=== PATIENT | male | born 1950 | race Caucasian/White ===

== ENCOUNTER 2022-05-10 11:04 | Day surgery (SDC) | payer OTHER, SELFPAY ==
--- NOTE | 2022-05-10 06:47 | ANES.PREOP_ITS ---
General Info Date of Service Date Performed: 05/10/22 Height: 5 ft 8 in Weight: 74.843 kg Body Mass Index (BMI): 25.0 Surgical Procedure: Operation Date: 05/10/22 14:40 Proposed Procedure Side Surgeon p Cataract Extraction with IOL Implant Right Gerard Martino MD Meds Allergies and Home Medications Allergies Allergy/AdvReac Type Severity Reaction Status Date / Time No Known Allergies Allergy Unverified 05/10/22 11:34 Home Medication Medication Instructions Recorded adalimumab 40 mg/0.8 mL 40 mg subcut DIRECTED 05/07/22 subcutaneous syringe kit calcium 100 mg capsule 100 mg PO DAILY 05/07/22 sildenafil 100 mg tablet 100 mg PO DIRECTED 05/07/22 tamsulosin 0.4 mg capsule 0.4 mg PO HS 05/07/22 omega-3 fatty acids 1 cap PO DAILY 05/10/22 Current Visit Medications: Current Medications Generic Name Dose Route Start Last Admin Trade Name Freq PRN Reason Stop Dose Admin Acetaminophen 1,000 mg 05/10/22 06:00 Acetaminophen 500 Mg Tab PO Q4H PRN PRN Miscellaneous Medication 0 ml 05/10/22 06:00 Prednisolone 1%, Moxifloxacin 0.5%, Nepafenac 0.1% 5ml Btl OD DIRECTED [facility] Miscellaneous Medication 0 ml 05/10/22 06:00 Tropicam./Phenyleph. (1/2.5%) 5 Ml Btl OD DIRECTED [facility] Tetracaine HCl 0 ml 05/10/22 06:00 Tetracaine 0.5% 4 Ml Btl OD DIRECTED [facility] Medical History Medical History Compression fracture of thoracic vertebra Erectile dysfunction Inguinal hernia Osteoporosis Pain in right knee Prostate cancer Ulcerative colitis Surgical History Surgical History (Updated 05/10/22 @ 11:34 by Jennifer Alexander RN) H/O inguinal hernia repair Tobacco Smoking/Tobacco Use Status: Former Tobacco Use Alcohol Alcohol Intake: current Alcohol intake frequency: a few times a week Alcohol type: beer Substance Use Substance use: Never Substance use type: does not use Vital Signs and Lab Results Vital Signs Most Recent Vital Signs in EMR: Temp Pulse Resp BP Pulse Ox 36.4 C L 75 16 126/92 H 98 05/10/22 11:26 05/10/22 11:26 05/10/22 11:26 05/10/22 11:26 05/10/22 11:26 Lab Results Blood Type / Crossmatch: No Data to Display Complete Blood Count: No Data to Display Complete Metabolic Panel: No Data to Display Liver Function Panel: No Data to Display Coagulation Panel: No Data to Display Cardiac Panel: No Data to Display Arterial Blood Gas: No Data to Display Venous Blood Gas: No Data to Display Pancreas Panel: No Data to Display Thyroid Panel: No Data to Display Infectious Disease: No Data to Display Blood Cultures: No Data to Display Toxicology Panel: No Data to Display Anesthesia Assessment and Plan Anesthesia History Personal History: No History of Anesthesia Complications Family History: No Family History of Anesthesia Complications Exercise Tolerance Exercise Tolerance: Metabolic Equivalents>4 Cardiac & Pulmonary Exam Cardiac Exam: Normal S1/S2 Heart Sounds Pulmonary Exam: Clear Bilateral Breath Sounds Implantable Cardiac Device Does patient have a Pacemaker or an ICD?: No Airway Exam Known Difficult Airway: No Mallampati Class: 2 Mouth Opening: Normal (> 3cm) Thyromental Distance: Greater than 3 cm Neck Range of Motion: Full ROM Neck Circumference: Normal Teeth Condition: Generalized Poor Dentition Airway Comments: Multiple missing, denies loose. ASA Classification ASA Score: ASA 2 Emergency Case?: No NPO Status NPO Status: NPO Clears >2 hours, Solids >8 hours Anesthesia Plan Resuscitation Status: Full Code Anesthesia Technique: MAC Anesthesia Airway Planned: Natural Airway Monitors Used: Standard Monitors Preoperative Comments:: 71 yo male for cataract removal. Sig PMHx: prostate CA, former smoker, No mko
[2022-05-10 11:26] VITALS: BP 126/92; PULSE 75; RESP 16; TEMP 36.4; O2SAT 98
[2022-05-10] MEDS: Tropicam./Phenyleph. (1/2.5%) 5 ML BTL OD ×3 (11:44→11:55)
[2022-05-10 12:06] VITALS: BMI 25.0
[2022-05-10] MEDS: Tetracaine 0.5% 4 ML BTL OD (13:33)
[2022-05-10] MEDS: Balanced Salt Soln.-PLUS 500 ML BAG (13:36)
[2022-05-10] MEDS: Duovisc Viscoelastic System EACH 1 EACH (13:37)
[2022-05-10] MEDS: Lidocaine 2% Jelly 6 ML SYR (13:39)
[2022-05-10] MEDS: Povidone-Iodine Ophth 30 ML BTL (13:40)
[2022-05-10 13:48] VITALS: BP 133/82; PULSE 69; RESP 16; TEMP 36.7; O2SAT 98
--- NOTE | 2022-05-10 13:49 | ROE_ITS ---
Date of service: 05/10/22 Time of Service: 14:31 Operative Note Operative Note DATE OF PROCEDURE: 05/10/22 PRE-OP DIAGNOSIS: Nuclear cataract, right eye POST-OP DIAGNOSIS: same PROCEDURE: Cataract extraction using phacoemulsification with intraocular lens implant, right eye SURGEON: Gerard Martino ANESTHESIA TYPE: Local By Surgeon and MAC Refer to Anesthesia Record ESTIMATED BLOOD LOSS: 0 PATHOLOGY: none sent COMPLICATIONS: None Patient was transported to: same day Patient's condition: stable Implants: Malcolm [employer] Malcolm/JOHANNA Tecnis [id number] Indications: Progressive visual loss due to cataract, right eye Procedure Description: CATARACT SURGERY OPERATIVE REPORT PREOPERATIVE DIAGNOSIS: 1. Nuclear cataract, right eye POSTOPERATIVE DIAGNOSIS: Same OPERATION: 1. Cataract extraction using phacoemulsification with posterior chamber intraocular lens implant, right eye. IOL: IOL Oil Well Gun Perforator Operator/Model: Malcolm & Malcolm / JOHANNA Tecnis [id number] IOL Power: + 18.5 diopters IOL Serial Number: [id number] Optic Diameter: 6.0mm Haptic/Overall Diameter: 13.0mm PHACO INFO: Victorinothinktank.neturion Vision System with OZil and Active Fluidics Cumulative Dispersed Energy (CDE): 14.75 seconds SURGEON: Gerard Martino MD, RJ ANESTHESIA: Monitored Anesthesia Care (MAC), with local sub-tenon's anesthetic infiltration COMPLICATIONS: None SPECIMENS: None INDICATIONS FOR PROCEDURE: The patient is a 71-year-old gentleman with history of diminished visual acuity in his right eye secondary to the development of significant nuclear cataract. The option of cataract surgery was offered to the patient and he felt he was symptomatic enough that he wished to proceed. PROCEDURE: The correct surgical eye was identified and marked as the right eye and the pupil was dilated in the preoperative area using mydriatics and cycloplegics. The dilated pupil size was 6.0 mm. He elected to proceed without oral sedation.). The patient was brought to the operating room where cardiopulmonary monitoring was instituted and surgical time-out was performed, confirming the correct operative eye and IOL power. Topical anesthesia was administered and ophthalmic povidone-iodine 5% was instilled into the conjunctival fornices. Lidocaine gel was applied to the cornea and the melinda-ocular area was prepped with Betadine 10% solution and draped in the usual sterile fashion for intraocular surgery, including an aperture drape. A Tegaderm transparent film dressing was cut in half and used to cover the lashes and lid margins. Care was taken to sequester the lashes and lid margins under the Tegaderm dressing. A lid speculum was placed between the lids of the operative eye and the Victorino Lux[employer] Revalia operating microscope was maneuvered into position. Marilee scissors were then used to make a conjunctival buttonhole approximately 6mm posterior to the limbus in the inferonasal quadrant. Blunt dissection was carried out to expose bare sclera, and a blunt-tipped sub-tenon?s anesthesia cannula was introduced and passed posteriorly along the globe where non- preserved plain lidocaine was injected into posterior sub-Tenon?s space. A sideport knife was used to make a paracentesis port inferotemporally. Intraocular phenylephrine/lidocaine was injected into the anterior chamber. The anterior chamber was filled with viscoelastic. A 2.4mm keratome knife was used to construct a 2-plane near-clear corneal tunnel extending 2.0mm into clear co rnea superiortemporally. A flap was raised on the anterior capsule and capsulorhexis forceps were used to complete a continuous curvilinear capsulorhexis of 5.0 mm. Balanced salt solution was then used to perform cortical cleaving hydrodissection and nuclear hydrodelineation until the lens could be freely rotated within the capsular bag. The lens nucleus was then disassembled and removed within the capsular bag and iris plane using phacoemulsification. Residual cortical material was removed using the I/A handpiece. The posterior capsule was carefully polished to remove as much residual lens epithelial cells as safely possible. The capsular bag was then inflated and the anterior chamber deepened with viscoelastic. The lens implant described above was inserted into the capsular bag using the JOHANNA [place] Injector. A Kuglen hook was used to dial the IOL into position. Residual viscoelastic was then removed first from posterior to the IOL, then from the anterior chamber using the I/A handpiece. The lens implant was noted to center nicely within the capsular bag. The incisions were stromally hydrated, and the anterior chamber was reformed using BSS. Then 0.5cc of moxifloxacin 1.0mg/ml were injected into the capsular bag and anterior chamber. The incisions were checked with a Weck spear and found to be secure. Several drops of ophthalmic povidone-iodine 5% were then applied to the eye followed by two drops of Imprimis combination prednisolone/moxifloxacin/nepafenac solution. The drapes were removed and a clear plastic protective eye shield was placed over the eye. The patient was then returned to Same Day Surgery in stable condition.
--- NOTE | 2022-05-10 13:49 | W.PM.DSUDISC ---
Discharge Plan Disposition Patient Disposition: HOME Condition: Good Discharge Details Attending Provider: Gerard Martino Primary Care Provider: [facility] Home Meds and New Rx's Prescriptions: No Action sildenafil 100 mg Tablet 100 mg PO DIRECTED adalimumab 40 mg/0.8 mL Syringe Kit 40 mg SUBCUT DIRECTED tamsulosin 0.4 mg Capsule 0.4 mg PO HS calcium 100 mg Capsule 100 mg PO DAILY Fish Oil Capsule 1 cap PO DAILY Discharge Instructions Stand Alone Forms: Post-op Topical Cataract, Terrance Pedroza (DSU) Discharge Orders Discharge Orders: Discharge Order (Routine); Ordered 05/10/22 Ordered By: Gerard Martino DS: Diagnosis Discharge Diagnosis (1) Nuclear sclerotic cataract of right eye: Status: Resolved
--- NOTE | 2022-05-10 14:50 | W.ANESPOSTOP ---
Postoperative Evaluation Date, Time and Location Date Performed: 05/10/22 Time Performed: 14:50 Patient Location: Day Surgery Unit Vital Signs Most Recent Imported Vital Signs: Most Recent Vital Signs Temp Pulse Resp BP Pulse Ox 36.7 C 69 16 133/82 98 05/10/22 13:48 05/10/22 13:48 05/10/22 13:48 05/10/22 13:48 05/10/22 13:48 Pain Score Most Recent Pain Score: Most Recent Pain Score Pain Level 0 05/10/22 13:48 Assessment Mental Status: Awake (Alert & Oriented to Patient Baseline) Airway and Respiratory Function: Patent airway with normal (patient baseline) respiratory exam Cardiovascular Function: Hemodynamically Stable Hydration Status: Adequately Hydrated Nausea & Vomiting: No Nausea or Vomiting Pain: Pt. Denies Any Pain Peripheral Nerve Block: Patient did not receive a nerve block
== END 2022-05-10 14:07 | disposition home or self-care (01) ==
PROVIDERS: Visit Provider Ophthalmology
PROC: (CPT 66984; principal; 2022-05-10 14:30)
DX: H25.11 Age-related nuclear cataract, right eye (principal); K51.90 Ulcerative colitis, unspecified, without complications; Z87.891 Personal history of nicotine dependence
CPT/HCPCS: 66984; V2632

== ENCOUNTER 2022-05-28 06:17 | Day surgery (SDC) | payer OTHER, SELFPAY ==
--- OUTSIDE RECORDS SUMMARY | 2022-05-28 06:18 | XMS_ITS | Clinical Summary ---
:1950 Author Organization [facility] Address [address] [place] [address] Care Team Providers Name Role Phone Unknown, Provider Primary Care Provider Social History Tobacco Use Types Packs/Day Years Used Date Never Assessed Sex Assigned at Date Recorded Not on file Plan of Treatment Health Maintenance Due Date Last Done Comments Hepatitis C Screen 1950 COVID-19 Vaccine (1) 1960 Fall Risk Screening 2013 Insurance Payer Benefit Plan / Subscriber ID Effective Dates Phone Addre ss Type Group [place] [employer] [id number] Effective for all PO [place] X 2020 [place] [id number] Care Teams Fire Tender Relationship Specialty Start Date End Date Unknown, Provider, PCP - General 11/21/19
--- OUTSIDE RECORDS SUMMARY | 2022-05-28 06:18 | XMS_ITS | Encounter Summary ---
:1950 Author Organization [facility] Address [address] [place] [address] Care Team Providers Name Role Phone Unknown, Provider Primary Care Provider Encounter Details Date Type Department Care Team Description 09/06/2020 Lab Requisition [facility] Hector Cordon Encounter for screening for malignant neoplasm of colon; Pathology & MD Joce Personal history of colonic polyps Laboratory Medicine [address] [place] [id number] Social History Tobacco Use Types Packs/Day Years Used Date Never Assessed Sex Assigned at Date Recorded Not on file documented as of this encounter Plan of Treatment Not on filedocumented as of this encounter Procedures Procedure Name Priority Date/Time Associated Diagnosis Comme nts SURGICAL PATHOLOGY Today 09/05/2020 9:18 EDT Encounter for R esults for this screening for procedure are in malignant neoplasm the resul ts of colon section. Personal history of colonic polyps documented in this encounter Results SURGICAL PATHOLOGY (09/05/2020 9:18 EDT) Final Diagnosis A. TERMINAL ILEUM, BIOPSY: [facility] MED[facility] - Minimally active chronic enteritis (See comment) [facility] B. COLON, CECUM, BIOPSY: SERVICES - Mildly active chronic colitis - Negative for dysplasia C. COLON, ASCENDING, BIOPSY: - Mildly active chronic colitis - Negative for dysplasia D. COLON, TRANSVERSE, BIOPSY: - Mildly active chronic colitis - Negative for dysplasia E. COLON, DESCENDING, BIOPSY: - Mildly active chronic colitis - Negative for dysplasia F. COLON, SIGMOID, BIOPSY: - Mildly active chronic colitis - Negative for dysplasia G. RECTUM, BIOPSY: - Mildly active chronic colitis - Negative for dysplasia Diagnosis Comment In the setting of a [facility] clinical diagnosis of CENTER ulcerative colitis, LABORATORY the findings in the SERVICES terminal ileum suggests the possibility of backwash ileitis. Attestation By the signature [facility] Electronica lly below, the attending CENTER signed by physician Mahesh certifies LABORATORY Meka Heck MD on that they have 1) SERVICES 09/09/2020 at 1255 personally conducted a gross and/or microscopic examination of the described specimen(s), and/or personally interpreted the results of laboratory testing of the described specimen(s), and 2) personally rendered or confirmed the above diagnosis. Clinical History Ulcerative colitis [facility] SERVICES Gross Description A. [facility] MED[facility] Received in formalin dinorah d with proper patient identification (initials N, G) and A. Bx terminal ileum are three luna tissues (0.2 x 0.2 x 0.2 cm to 0.2 x 0.1 x 0.1 cm). Entirely submitted in A1. [facility]ENTER LAB[facility]ATORY B. SERVICES Received in formalin dinorah d with proper patient identification (initials N, G) and B. Bx cecum is a single luna tissue (0.3 x 0.2 x 0.2 cm). Submitted intact in B1. C. Received in formalin dinorah d with proper patient identification (initials N, G) and C. Bx ascending colon are two luna-brown tissues (0.2 x 0.2 x 0.2 cm and 0.2 x 0.2 x 0.2 cm). Entirely submitted in C1. D. Received in formalin dinorah d with proper patient identification (initials N, G) and D. Bx transverse colon are two luna tissues (0.3 x 0.2 x 0.2 cm and 0.2 x 0.2 x 0.1 cm). Entirely submitted in D1. E. Received in formalin dinorah d with proper patient identification (initials N, G) and E. Bx descending colon is a single luna tissue (0.3 x 0.2 x 0.2 cm). Submitted intact in E1. F. Received in formalin dinorah d with proper patient identification (initials N, G) and F. Bx sigmoid are two luna tissues (0.3 x 0.2 x 0.2 cm and 0.2 x 0.2 x 0.2 cm). Entirely submitted in F1. G. Received in formalin dinorah d with proper patient identification (initials N, G) and G. Bx rectum is a single luna tissue (0.2 x 0.2 x 0.1 cm). Submitted intact in Wilder Fagan 09/06/2020 12:00 Performing Lab [facility] SERVICES Scanned Images [facility] SERVICES Specimen Tissue - Specimen from rectum (specimen) Tissue specimen (specimen) - Cecum struc ture (body structure) Tissue specimen (specimen) - Ascending c olon structure (body structure) Tissue specimen (specimen) - Entire pal sverse colon (body structure) Tissue specimen (specimen) - Descending colon structure (body structure) Tissue specimen (specimen) - Entire sigm oid colon (body structure) Tissue specimen (specimen) - Specimen fr om rectum (specimen) Performing Organization Address City/State/ZIP Code Phon e Number [facility] [address] [place] [address] SERVICES documented in this encounter Visit Diagnoses Diagnosis Encounter for screening for malignant ne oplasm of colon Special screening for malignant neoplasm s, colon Personal history of colonic polyps documented in this encounter Care Teams Corn Detasseler Relationship Specialty Start Date End Date Unknown, Provider, PCP - General 11/21/19 documented as of this encounter
[2022-05-28 06:20] VITALS: BP 124/86; PULSE 81; RESP 18; TEMP 36.2; O2SAT 97
[2022-05-28] MEDS: Tropicam./Phenyleph. (1/2.5%) 5 ML BTL OS ×3 (06:30→06:41)
--- NOTE | 2022-05-28 07:08 | W.ANESPRE ---
General Info Date of Service Date Performed: 05/28/22 Height: 5 ft 8 in Weight: 75.6 kg Body Mass Index (BMI): 25.3 Surgical Procedure: Operation Date: 05/28/22 07:40 Proposed Procedure Side Surgeon p Cataract Extraction with IOL Implant Left Gerard Martino MD Meds Allergies and Home Medications Allergies Allergy/AdvReac Type Severity Reaction Status Date / Time No Known Allergies Allergy Unverified 05/28/22 06:12 Home Medication Medication Instructions Recorded adalimumab 40 mg/0.8 mL 40 mg subcut DIRECTED 05/07/22 subcutaneous syringe kit calcium 100 mg capsule 100 mg PO DAILY 05/07/22 sildenafil 100 mg tablet 100 mg PO DIRECTED 05/07/22 tamsulosin 0.4 mg capsule 0.4 mg PO HS 05/07/22 omega-3 fatty acids 1 cap PO DAILY 05/10/22 Current Visit Medications: Current Medications Generic Name Dose Route Start Last Admin Trade Name Freq PRN Reason Stop Dose Admin Acetaminophen 1,000 mg 05/28/22 06:00 Acetaminophen 500 Mg Tab PO Q4H PRN PRN Miscellaneous Medication 0 ml 05/28/22 06:00 Prednisolone 1%, Moxifloxacin 0.5%, Nepafenac 0.1% 5ml Btl OS DIRECTED [facility] Miscellaneous Medication 0 ml 05/28/22 06:00 05/28/22 06:41 Tropicam./Phenyleph. (1/2.5%) 5 Ml Btl OS 1 drp DIRECTED [facility] Administration Tetracaine HCl 0 ml 05/28/22 06:00 Tetracaine 0.5% 4 Ml Btl OS DIRECTED [facility] PFSH Active Problems Active Problems: Problem Status Onset Code Nuclear sclerotic cataract of right eye H25.11 Medical History Medical History Compression fracture of thoracic vertebra Erectile dysfunction Inguinal hernia Osteoporosis Pain in right knee Prostate cancer Ulcerative colitis Surgical History Surgical History (Updated 05/28/22 @ 06:32 by Selam Mehta) H/O inguinal hernia repair History of cataract surgery Tobacco Smoking/Tobacco Use Status: Former Tobacco Use Alcohol Alcohol Intake: current Alcohol intake frequency: a few times a week Alcohol type: beer Substance Use Substance use: Never Substance use type: does not use Vital Signs and Lab Results Vital Signs Most Recent Vital Signs in EMR: Most Recent Vital Signs Temp Pulse Resp BP Pulse Ox 36.2 C L 81 18 124/86 97 05/28/22 06:20 05/28/22 06:20 05/28/22 06:20 05/28/22 06:20 05/28/22 06:20 Lab Results Blood Type / Crossmatch: No Data to Display Complete Blood Count: No Data to Display Complete Metabolic Panel: No Data to Display Liver Function Panel: No Data to Display Coagulation Panel: No Data to Display Cardiac Panel: No Data to Display Arterial Blood Gas: No Data to Display Venous Blood Gas: No Data to Display Pancreas Panel: No Data to Display Thyroid Panel: No Data to Display Infectious Disease: No Data to Display Blood Cultures: No Data to Display Toxicology Panel: No Data to Display Anesthesia Assessment and Plan Anesthesia History Personal History: No History of Anesthesia Complications Family History: No Family History of Anesthesia Complications Exercise Tolerance Exercise Tolerance: Metabolic Equivalents>4 Pertinent Negatives Pertinent Negatives: No Symptoms of GERD, No Major Cardiovascular Symptoms or Complaints and No Major Pulmonary Symptoms or Complaints Cardiac & Pulmonary Exam Cardiac Exam: Normal S1/S2 Heart Sounds Pulmonary Exam: Clear Bilateral Breath Sounds Implantable Cardiac Device Does patient have a Pacemaker or an ICD?: No Airway Exam Known Difficult Airway: No Mallampati Class: 2 Mouth Opening: Normal (> 3cm) Thyromental Distance: Greater than 3 cm Neck Range of Motion: Full ROM Neck Circumference: Normal Teeth Condition: Generalized Poor Dentition Airway Comments: Multiple missing, denies loose. ASA Classification ASA Score: ASA 2 Emergency Case?: No NPO Status NPO Status: NPO Clears >2 hours, Solids >8 hours Anesthesia Plan Resuscitation Status: Full Code Anesthesia Technique: MAC Anesthesia Airway Planned: Natural Airway Monitors Used: Standard Monitors
[2022-05-28 07:10] VITALS: BMI 25.3
[2022-05-28] MEDS: Tetracaine 0.5% 4 ML BTL OS (07:24)
[2022-05-28] MEDS: Balanced Salt Soln.-PLUS 500 ML BAG (07:33)
[2022-05-28] MEDS: Lidocaine 2% Jelly 6 ML SYR (07:34)
[2022-05-28] MEDS: Duovisc Viscoelastic System EACH 1 EACH (07:34)
[2022-05-28] MEDS: Povidone-Iodine Ophth 30 ML BTL (07:34)
--- NOTE | 2022-05-28 08:00 | W.PM.DSUDISC ---
Discharge Plan Disposition Patient Disposition: HOME Condition: Good Discharge Details Attending Provider: Gerard Martino Primary Care Provider: [facility] Home Meds and New Rx's Prescriptions: No Action sildenafil 100 mg Tablet 100 mg PO DIRECTED adalimumab 40 mg/0.8 mL Syringe Kit 40 mg SUBCUT DIRECTED tamsulosin 0.4 mg Capsule 0.4 mg PO HS calcium 100 mg Capsule 100 mg PO DAILY Fish Oil Capsule 1 cap PO DAILY Discharge Instructions Stand Alone Forms: Post-op Topical Cataract, Terrance Pedroza ([facility]) Discharge Orders Discharge Orders: Discharge Order (Routine); Ordered 05/28/22 Ordered By: Gerard Martino DS: Diagnosis Discharge Diagnosis (1) Nuclear sclerotic cataract of left eye: Status: Resolved
--- NOTE | 2022-05-28 08:01 | W.PM.OP ---
Date of service: 05/28/22 Time of Service: 08:01 Operative Note Operative Note DATE OF PROCEDURE: 05/28/22 PRE-OP DIAGNOSIS: Nuclear cataract, left eye POST-OP DIAGNOSIS: same PROCEDURE: Cataract extraction using phacoemulsification with intraocular lens implant, left eye SURGEON: Gerard Martino ANESTHESIA TYPE: Local By Surgeon and MAC Refer to Anesthesia Record PATHOLOGY: none sent COMPLICATIONS: None Patient was transported to: same day Patient's condition: stable Implants: Malcolm [employer] Malcolm / [employer] Tecnis [id number] Indications: Progressive decreased vision due to cataract, left eye Procedure Description: CATARACT SURGERY OPERATIVE REPORT PREOPERATIVE DIAGNOSIS: 1. Nuclear cataract, left eye POSTOPERATIVE DIAGNOSIS: Same OPERATION: 1. Cataract extraction using phacoemulsification with posterior chamber intraocular lens implant, left eye. IOL: IOL Residential Housekeeper/Model: Malcolm & Malcolm / JOHANNA Tecnis [id number] IOL Power: + 19.5 diopters IOL Serial Number: [id number] Optic Diameter: 6.0 mm Haptic/Overall Diameter: 13.0 mm PHACO INFO: VictorinoWISE s.r.lurion Vision System with OZil and Active Fluidics Cumulative Dispersed Energy (CDE): 22.01 seconds SURGEON: Gerard Martino MD, RJ ANESTHESIA: Monitored A [facility] (MAC), with local sub-tenon's anesthetic infiltration COMPLICATIONS: None SPECIMENS: None INDICATIONS FOR PROCEDURE: The patient is a 71-year-old gentleman with history of diminished visual acuity in both eyes secondary to the development of bilateral nuclear cataract. He has already undergone cataract surgery in the right eye and is doing well postoperatively. He now presents for cataract surgery in the left eye. PROCEDURE: The correct surgical eye was identified and marked as the left eye and the pupil was dilated in the preoperative area using mydriatics and cycloplegics. The dilated pupil size was 5.0 mm. The patient was brought to the operating room where cardiopulmonary monitoring was instituted and surgical time-out was performed, confirming the correct operative eye and IOL power. Topical anesthesia was administered and ophthalmic povidone-iodine 5% was instilled into the conjunctival fornices. Lidocaine gel was applied to the cornea and the melinda-ocular area was prepped with Betadine 10% solution and draped in the usual sterile fashion for intraocular surgery, including an aperture drape. A Tegaderm transparent film dressing was cut in half and used to cover the lashes and lid margins. Care was taken to sequester the lashes and lid margins under the Tegaderm dressing. A lid speculum was placed between the lids of the operative eye and the Victorino Lux[employer] Revalia operating microscope was maneuvered into position. Marilee scissors were then used to make a conjunctival buttonhole approximately 6mm posterior to the limbus in the inferonasal quadrant. Blunt dissection was carried out to expose bare sclera, and a blunt-tipped sub-tenon?s anesthesia cannula was introduced and passed posteriorly along the globe where non-preserved plain lidocaine was injected into posterior sub-Tenon?s space. A sideport knife was used to make a paracentesis port superiorly/superiortemporally. Intraocular phenylephrine/lidocaine was injected int the anterior chamber.. The anterior chamber was filled with viscoelastic. A 2.4mm keratome knife was used to construct a 2-plane near-clear corneal tunnel extending 2.0mm into clear cornea temporally. A flap was raised on the anterior capsule and capsulorhexis forceps were used to complete a continuous curvilinear capsulorhexis of 5.0 mm. Balanced salt solution was then used to perform cortical cleaving hydrodissection and nuclear hydrodelineation until the lens could be freely rotated within the capsular bag. The lens nucleus was then disassembled and removed within the capsular bag and iris plane using phacoemulsification. Residual cortical material was removed using the 45-degree angled silicone I/A tip with 0.3mm port. The posterior capsule was carefully polished to remove as much residual lens epithelial cells as safely possible. The capsular bag was then inflated and the anterior chamber deepened with viscoelastic. The lens implant described above was inserted into the capsular bag using the JOHANNA [place] Injector. A Kuglen hook was used to dial the IOL into position. Residual viscoelastic was then removed first from posterior to the IOL, then from the anterior chamber using the I/A handpiece. The lens implant was noted to center nicely within the capsular bag. The incisions were stromally hydrated, and the anterior chamber was reformed using BSS. Then 0.5cc of moxifloxacin 1.0mg/ml were injected into the capsular bag and anterior chamber. The incisions were checked with a Weck spear and found to be secure. Several drops of ophthalmic povidone-iodine 5% were then applied to the eye followed by two drops of Imprimis combination prednisolone/moxifloxacin/nepafenac solution. The drapes were removed and a clear plastic protective eye shield was placed over the eye. The patient was then returned to Same Day Surgery in stable condition.
[2022-05-28 08:09] VITALS: BP 132/98; PULSE 77; RESP 16; TEMP 36.1; O2SAT 97
--- NOTE | 2022-05-28 08:15 | W.ANESPOSTOP ---
Postoperative Evaluation Date, Time and Location Date Performed: 05/28/22 Time Performed: 08:09 Patient Location: Day Surgery Unit Vital Signs Most Recent Imported Vital Signs: Most Recent Vital Signs Temp Pulse Resp BP Pulse Ox 36.1 C L 77 16 132/98 H 97 05/28/22 08:09 05/28/22 08:09 05/28/22 08:09 05/28/22 08:09 05/28/22 08:09 Pain Score Most Recent Pain Score: Most Recent Pain Score Pain Level 0 05/28/22 08:09 Assessment Mental Status: Awake (Alert & Oriented to Patient Baseline) Airway and Respiratory Function: Patent airway with normal (patient baseline) respiratory exam Cardiovascular Function: Hemodynamically Stable Hydration Status: Adequately Hydrated Nausea & Vomiting: No Nausea or Vomiting Pain: Pt. Denies Any Pain Peripheral Nerve Block: Patient did not receive a nerve block
== END 2022-05-28 08:24 | disposition home or self-care (01) ==
PROVIDERS: Visit Provider Ophthalmology
PROC: (CPT 66984; principal; 2022-05-28 07:30)
DX: H25.12 Age-related nuclear cataract, left eye (principal)
CPT/HCPCS: 66984; V2632

== ENCOUNTER 2022-08-13 00:38 | Outpatient (RCR) | payer OTHER, SELFPAY ==
[2022-08-13] MEDS: Normal Saline Flush 10 ML SYR IVP (08:04)
[2022-08-13] MEDS: VEDOLIZUMAB 300 MG in Normal Saline 250 ML 500 MG IVPB (08:04)
== END 2022-08-20 23:59 | disposition home or self-care (01) ==
LOC: INF 00:38
PROVIDERS: Visit Provider Internal Medicine
DX: K51.819 Other ulcerative colitis with unspecified complications (principal)
CPT/HCPCS: 96365; J3380

== ENCOUNTER 2022-08-27 01:05 | Outpatient (RCR) | payer OTHER, SELFPAY ==
[2022-08-27] MEDS: Normal Saline Flush 10 ML SYR IVP (08:14)
[2022-08-27] MEDS: VEDOLIZUMAB 300 MG in Normal Saline 250 ML 500 MG IVPB (08:14)
== END 2022-09-20 23:59 | disposition home or self-care (01) ==
LOC: INF 01:05
PROVIDERS: Visit Provider Internal Medicine
DX: K51.819 Other ulcerative colitis with unspecified complications (principal)
CPT/HCPCS: 96365; J3380

== ENCOUNTER 2022-09-24 01:18 | Outpatient (RCR) | payer OTHER, SELFPAY ==
[2022-09-24] MEDS: VEDOLIZUMAB 300 MG in Normal Saline 250 ML 500 MG IVPB (08:12)
[2022-09-24] MEDS: Normal Saline Flush 10 ML SYR IVP (08:55)
== END 2022-10-20 23:59 | disposition home or self-care (01) ==
LOC: INF 01:18
PROVIDERS: Visit Provider Internal Medicine
DX: K51.819 Other ulcerative colitis with unspecified complications (principal)
CPT/HCPCS: 96365; J3380

== ENCOUNTER 2022-11-19 00:47 | Outpatient (RCR) | payer OTHER, SELFPAY ==
[2022-11-19] MEDS: Normal Saline Flush 10 ML SYR IVP (07:55)
[2022-11-19] MEDS: VEDOLIZUMAB 300 MG in Normal Saline 250 ML 500 MG IVPB (08:11)
== END 2022-11-20 23:59 | disposition home or self-care (01) ==
LOC: INF 00:47
PROVIDERS: Visit Provider Internal Medicine
DX: K51.819 Other ulcerative colitis with unspecified complications (principal)
CPT/HCPCS: 96365; J3380

== ENCOUNTER 2023-01-14 01:24 | Outpatient (RCR) | payer OTHER, SELFPAY ==
[2023-01-14] MEDS: VEDOLIZUMAB 300 MG in Normal Saline 250 ML 500 MG IVPB (08:21)
[2023-01-14] MEDS: Normal Saline Flush 10 ML SYR IVP (08:21)
== END 2023-01-18 23:59 | disposition home or self-care (01) ==
LOC: INF 01:24
PROVIDERS: Visit Provider Internal Medicine
DX: K51.819 Other ulcerative colitis with unspecified complications (principal)
CPT/HCPCS: J3380

== ENCOUNTER 2023-03-11 01:14 | Outpatient (RCR) | payer OTHER, SELFPAY ==
[2023-03-11] MEDS: Normal Saline Flush 10 ML SYR IVP (08:18)
[2023-03-11] MEDS: VEDOLIZUMAB 300 MG in Normal Saline 250 ML 500 MG IVPB (08:18)
== END 2023-03-20 23:59 | disposition home or self-care (01) ==
LOC: INF 01:14
PROVIDERS: Visit Provider Internal Medicine
DX: K51.819 Other ulcerative colitis with unspecified complications (principal)
CPT/HCPCS: 96365; J3380

== ENCOUNTER 2023-05-06 01:43 | Outpatient (RCR) | payer OTHER, SELFPAY ==
[2023-05-06] MEDS: Normal Saline Flush 10 ML SYR IVP (07:27)
[2023-05-06] MEDS: VEDOLIZUMAB 300 MG in Normal Saline 250 ML 500 MG IVPB (08:02)
== END 2023-05-20 23:59 | disposition home or self-care (01) ==
LOC: INF 01:43
PROVIDERS: Visit Provider Nurse Practitioner Acute Care
DX: K51.819 Other ulcerative colitis with unspecified complications (principal)
CPT/HCPCS: 96365; J3380

== ENCOUNTER 2023-05-20 00:17 | Outpatient (CLI) | payer OTHER, SELFPAY ==
--- NOTE | 2023-05-20 09:42 | DI.RAD_ITS ---
Exam(s) XR SHOULDER RT COMPLETE 2+V EXAM: XR SHOULDER RT COMPLETE 2+V CLINICAL HISTORY: RT SHOULDER PAIN,M25.511,H/O UC,OA,OSTEOPOROSIS. TECHNIQUE: 2D digital imaging was performed. Five views. COMPARISON: No exams were available for comparison FINDINGS: BONES: No acute fracture is present. No bony destructive lesion is seen. JOINTS: No dislocation present. Prominent spurring at the AC joint. Joint space narrowing and promi nent spurring at the humeral head and margin of the glenoid. SOFT TISSUE: Normal. IMPRESSION: Advanced degenerative changes. DATA REPOSITORY: RADIATION DOSE DELIVERED:
== END 2023-05-20 00:37 ==
PROVIDERS: Visit Provider Internal Medicine
DX: M19.011 Primary osteoarthritis, right shoulder (principal)
CPT/HCPCS: 73030

== ENCOUNTER 2023-07-01 01:28 | Outpatient (RCR) | payer OTHER, SELFPAY ==
[2023-07-01] MEDS: VEDOLIZUMAB 300 MG in Normal Saline 250 ML 500 MG IVPB (07:57)
[2023-07-01] MEDS: Normal Saline Flush 10 ML SYR IVP (07:57)
== END 2023-07-21 23:59 | disposition home or self-care (01) ==
LOC: INF 01:28
PROVIDERS: Visit Provider Nurse Practitioner Acute Care
DX: K51.819 Other ulcerative colitis with unspecified complications (principal)
CPT/HCPCS: 96365; J3380

== ENCOUNTER → 2023-08-15 01:16 | Outpatient (CLI) | payer OTHER, SELFPAY ==
--- NOTE | 2023-08-15 | DI.MRI_ITS ---
Exam(s) MR UPPER JOINT RT WO EXAM: MR UPPER JOINT RT WO CLINICAL HISTORY: RT SHOULDER PAIN [id number]. TECHNIQUE: Multiplanar multisequence MRI was performed. COMPARISON: CR XR SHOULDER RT COMPLETE 2+V from 05/20/2023 FINDINGS: The examination is limited due to patient motion artifact. BONES: There is no fracture or contusion pattern. Cysts are seen in the humeral head. JOINTS: There are marked degenerative changes seen at both the acromioclavicular and glenohumeral cedrick nts. TENDONS: Supraspinatus: There is a full-thickness tear of the supraspinatus tendon at its insertion site onto the greater tuberosity. Infraspinatus: There is tendinosis of the infraspinatus tendon. Subscapularis: There is hyperintense signal seen in the subscapularis tendon consistent with a partia l intrasubstance tear. There is underlying tendinosis present. Teres Minor: Unremarkable. Biceps and [place]: Unremarkable. MUSCLES: Unremarkable. GLENOID LABRUM: Evaluation of the labrum is limited due to patient motion artifact but there does marvin ear to be at least some degenerative change within the labrum. Tear cannot be excluded on this exami nation. SOFT TISSUES: Unremarkable. LIGAMENTS: Unremarkable. OTHER: There is fluid in the subacromial subdeltoid bursa. IMPRESSION: 1. There is patient motion artifact which limits examination. 2. Full-thickness tear of the supraspinatus tendon at its insertion site. 3. Partial intrasubstance tear of the subscapularis tendon. 4. Tendinosis involving the infraspinatus and subscapularis tendons. 5. Marked degenerative changes seen at the acromioclavicular and glenohumeral joints. 6. Irregularity of the labrum suggesting degeneration. Tear cannot be excluded on this examination. DATA REPOSITORY:
== END ==
PROVIDERS: Visit Provider Physician Assistant
DX: M75.121 Complete rotator cuff tear or rupture of right shoulder, not specified as traumatic (principal)
CPT/HCPCS: 73221

== ENCOUNTER 2023-08-26 01:29 | Outpatient (RCR) | payer OTHER, SELFPAY ==
[2023-08-26] MEDS: Normal Saline Flush 10 ML SYR IVP (07:35)
[2023-08-26] MEDS: VEDOLIZUMAB 300 MG in Normal Saline 250 ML 500 MG IVPB (08:20)
== END 2023-09-20 23:59 | disposition home or self-care (01) ==
LOC: INF 01:29
PROVIDERS: Visit Provider Nurse Practitioner Acute Care
DX: K51.90 Ulcerative colitis, unspecified, without complications (principal)
CPT/HCPCS: 96365; J3380

== ENCOUNTER 2023-10-21 01:08 | Outpatient (RCR) | payer OTHER, SELFPAY ==
[2023-10-21] MEDS: VEDOLIZUMAB 300 MG in Normal Saline 250 ML 500 MG IVPB (07:51)
[2023-10-21] MEDS: Normal Saline Flush 10 ML SYR IVP (07:51)
== END 2023-11-20 23:59 | disposition home or self-care (01) ==
LOC: INF 01:08
PROVIDERS: Visit Provider Nurse Practitioner Acute Care
DX: K51.90 Ulcerative colitis, unspecified, without complications
CPT/HCPCS: 96365; J3380

== ENCOUNTER 2023-10-27 05:47 | Day surgery (SDC) | payer OTHER, SELFPAY ==
[2023-10-27 06:05] VITALS: BP 147/79; PULSE 71; RESP 18; TEMP 37; O2SAT 97
[2023-10-27] MEDS: Lactated Ringers 1,000 ML 30 ML IV (06:45)
--- NOTE | 2023-10-27 06:58 | W.ANESPRE ---
General Info Date of Service Date Performed: 10/27/23 Height: 5 ft 8 in Weight: 79.6 kg Body Mass Index (BMI): 26.6 Surgical Procedure: Operation Date: 10/27/23 07:40 Proposed Procedure Side Surgeon p Shoulder Reverse Total Arthroplasty, Biceps Tenodesis Right Manfred Peraza MD Meds Allergies and Home Medications Allergies Allergy/AdvReac Type Severity Reaction Status Date / Time No Known Allergies Allergy Unverified 10/27/23 06:25 Home Medication Medication Instructions Recorded calcium 100 mg capsule 100 mg PO DAILY 05/07/22 sildenafil 100 mg tablet 100 mg PO DIRECTED 05/07/22 tamsulosin 0.4 mg capsule 0.4 mg PO HS 05/07/22 omega-3 fatty acids 1 cap PO DAILY 05/10/22 albuterol sulfate 90 mcg/actuation 2 puff inhalation Q6H PRN 10/12/23 aerosol inhaler alendronate 70 mg tablet 70 mg PO QWEEK 10/12/23 gabapentin 300 mg capsule 300 mg PO QHS 10/12/23 vedolizumab 300 mg intravenous 300 mg IV Q8W 10/12/23 solution (Entyvio) Current Visit Medications: Current Medications Generic Name Dose Route Start Last Admin Trade Name Freq PRN Reason Stop Dose Admin Ringer's Solution 1,000 mls @ 30 mls/hr 10/27/23 06:00 IV 10/27/23 23:59 INFUSION BACILIO Cefazolin Sodium/Dextrose 2 gm in 50 mls @ 100 mls/hr 10/27/23 06:00 Ancef Duplex IVPB 10/27/23 23:59 PREOP BACILIO Tranexamic Acid 1,000 mg/ 60 mls @ 360 mls/hr 10/27/23 06:00 Sodium Chloride IVPB 10/27/23 23:59 DIRECTED BACILIO IV Miscellaneous Supplies 1 each 10/27/23 06:00 Iv Access IV 10/27/23 23:59 DIRECTED BACILIO Sodium Chloride 0 ml 10/27/23 06:00 Normal Saline Flush 10 Ml Syr IV 10/27/23 23:59 PRN PRN Sodium Chloride 0 ml 10/27/23 06:00 Normal Saline 10 Ml Vial IJ 10/27/23 23:59 DIRECTED PRN Sterile Water 0 ml 10/27/23 06:00 Water,Injection,Sterile 10 Ml Vial IJ 10/27/23 23:59 DIRECTED PRN PFSH Active Problems Active Problems: Problem Status Onset Code Tendonitis of long head of biceps brachii of right shoulder M75.21 Rotator cuff tear arthropathy of right shoulder M75.101, M12.811 Nuclear sclerotic cataract of left eye H25.12 Nuclear sclerotic cataract of right eye H25.11 Osteoporosis M81.0 Ulcerative colitis K51.90 Medical History Medical History Erectile dysfunction Inguinal hernia Compression fracture of thoracic vertebra Prostate cancer Pain in right knee Surgical History Surgical History History of eyelid surgery History of cataract surgery H/O inguinal hernia repair Tobacco Smoking/Tobacco Use Status: Former Tobacco Use Alcohol Alcohol Intake: current Alcohol intake frequency: a few times a week Alcohol type: beer and wine Substance Use Substance use: Never Substance use type: does not use Vital Signs and Lab Results Vital Signs Most Recent Vital Signs in EMR: Most Recent Vital Signs Temp Pulse Resp BP Pulse Ox 37.0 C 71 18 147/79 H 97 10/27/23 06:05 10/27/23 06:05 10/27/23 06:05 10/27/23 06:05 10/27/23 06:05 Lab Results Blood Type / Crossmatch: No Data to Display Complete Blood Count: No Data to Display Complete Metabolic Panel: No Data to Display Liver Function Panel: No Data to Display Coagulation Panel: No Data to Display Cardiac Panel: No Data to Display Arterial Blood Gas: No Data to Display Venous Blood Gas: No Data to Display Pancreas Panel: No Data to Display Thyroid Panel: No Data to Display Infectious Disease: No Data to Display Blood Cultures: No Data to Display Toxicology Panel: No Data to Display Anesthesia Assessment and Plan Anesthesia History Personal History: No History of Anesthesia Complications Family History: No Family History of Anesthesia Complications Exercise Tolerance Exercise Tolerance: Metabolic Equivalents>4 Pertinent Negatives Pertinent Negatives: No Major Cardiovascular Symptoms or Complaints and No Major Pulmonary Symptoms or Complaints Cardiac & Pulmonary Exam Cardiac Exam: Normal S1/S2 Heart Sounds Pulmonary Exam: Clear Bilateral Breath Sounds Implantable Cardiac Device Does patient have a Pacemaker or an ICD?: No Airway Exam Known Difficult Airway: No Mallampati Class: 2 Mouth Opening: Normal (> 3cm) Thyromental Distance: Greater than 3 cm Neck Range of Motion: Full ROM Neck Circumference: Normal Teeth Condition: Generalized Poor Dentition (4 stable teeth on bottom to hold partial plate, edentulous upper) Airway Comments: Multiple missing, denies loose. ASA Classification ASA Score: ASA 2 Emergency Case?: No NPO Status NPO Status: NPO Clears >2 hours, Solids >8 hours Anesthesia Plan Resuscitation Status: Full Code Anesthesia Technique: General Anesthesia Airway Planned: Endotracheal Tube Pain Management: Surgeon and patient request nerve block Monitors Used: Standard Monitors Preoperative Comments:: Diagnosed with syphilis 2 days ago, received IM PCN G yesterday, denied symptoms, but upon assessment, rash noted with open lesions, specifically noted on right upper arm (surgical site). Dr. Peraza agreed to cancel.
[2023-10-27 06:59] VITALS: BMI 26.6
== END 2023-10-27 05:48 | disposition home or self-care (01) ==
LOC: SUR 05:47
PROVIDERS: Visit Provider Student in an Organized Health Care Education/Training Program
DX: Z53.09 Procedure and treatment not carried out because of other contraindication (principal)

== ENCOUNTER 2023-12-16 01:19 | Outpatient (RCR) | payer OTHER, SELFPAY ==
[2023-12-16] MEDS: VEDOLIZUMAB 300 MG in Normal Saline 250 ML 500 MG IVPB (08:23)
[2023-12-16] MEDS: Normal Saline Flush 10 ML SYR IVP (08:27)
== END 2023-12-21 23:59 | disposition home or self-care (01) ==
LOC: INF 01:19
PROVIDERS: Visit Provider Nurse Practitioner Acute Care
DX: K51.90 Ulcerative colitis, unspecified, without complications (principal)
CPT/HCPCS: 96365; J3380

== ENCOUNTER 2024-01-13 05:55 | Day surgery (SDC) | payer OTHER, SELFPAY ==
[2024-01-13] VITALS (14 sets, daily range): BP systolic 87–147; BP diastolic 58–94; PULSE 68–85; RESP 11–20; TEMP 36.1–36.7; O2SAT 90–97; BMI 27.9
--- NOTE | 2024-01-13 06:50 | W.ANESPRE ---
General Info Date of Service Date Performed: 01/13/24 Height: 5 ft 8 in Weight: 83.3 kg Body Mass Index (BMI): 27.9 Surgical Procedure: Operation Date: 01/13/24 07:40 Proposed Procedure Side Surgeon p Shoulder Reverse Total Arthroplasty, Biceps Tenodesis Right Manfred Peraza MD Meds Allergies and Home Medications Allergies Allergy/AdvReac Type Severity Reaction Status Date / Time No Known Allergies Allergy Verified 01/13/24 06:02 Home Medication Medication Instructions Recorded calcium 100 mg capsule 100 mg PO DAILY 05/07/22 sildenafil 100 mg tablet 100 mg PO DIRECTED 05/07/22 tamsulosin 0.4 mg capsule 0.4 mg PO HS 05/07/22 omega-3 fatty acids 1 cap PO DAILY 05/10/22 albuterol sulfate 90 mcg/actuation 2 puff inhalation Q6H PRN 10/12/23 aerosol inhaler alendronate 70 mg tablet 70 mg PO QWEEK 10/12/23 gabapentin 300 mg capsule 300 mg PO QHS 10/12/23 vedolizumab 300 mg intravenous 300 mg IV Q8W 10/12/23 solution (Entyvio) tramadol 50 mg tablet 50 mg PO Q8H PRN pain #12 tabs 12/27/23 aspirin 81 mg tablet,delayed 81 mg PO DAILY Prevent blood clot 01/03/24 release #7 tabs naproxen 250 mg tablet 250 - 500 mg (1 - 2 x 250 mg) PO 01/03/24 BID PRN pain, moderate #40 tabs Current Visit Medications: Current Medications Generic Name Dose Route Start Last Admin Trade Name Freq PRN Reason Stop Dose Admin Ringer's Solution 1,000 mls @ 30 mls/hr 01/13/24 06:00 IV 02/11/24 23:59 INFUSION BACILIO Cefazolin Sodium/Dextrose 2 gm in 50 mls @ 100 mls/hr 01/13/24 06:00 Ancef Duplex IVPB 01/13/24 16:00 PREOP BACILIO Tranexamic Acid 1,000 mg/ 60 mls @ 360 mls/hr 01/13/24 06:00 Sodium Chloride IVPB 01/13/24 16:00 PREOP BACILIO IV Miscellaneous Supplies 1 each 01/13/24 06:00 Iv Access IV 02/11/24 23:59 DIRECTED BACILIO Sodium Chloride 0 ml 01/13/24 06:00 Normal Saline Flush 10 Ml Syr IV 02/11/24 23:59 PRN PRN Sodium Chloride 0 ml 01/13/24 06:00 Normal Saline 10 Ml Vial IJ 02/11/24 23:59 DIRECTED PRN Sterile Water 0 ml 01/13/24 06:00 Water,Injection,Sterile 10 Ml Vial IJ 02/11/24 23:59 DIRECTED PRN PFSH Active Problems Active Problems: Problem Status Onset Code Tendonitis of long head of biceps brachii of right shoulder M75.21 Rotator cuff tear arthropathy of right shoulder M75.101, M12.811 Nuclear sclerotic cataract of left eye H25.12 Nuclear sclerotic cataract of right eye H25.11 Osteoporosis M81.0 Ulcerative colitis K51.90 Medical History Medical History Erectile dysfunction Inguinal hernia Compression fracture of thoracic vertebra Prostate cancer Pain in right knee Medical History Comments:: pt. reports getting sick after an EGD before Surgical History Surgical History History of appendectomy Hx of knee surgery History of eyelid surgery History of cataract surgery H/O inguinal hernia repair Tobacco Smoking/Tobacco Use Status: Former Tobacco Use Alcohol Alcohol Intake: current Alcohol intake frequency: a few times a week Alcohol type: beer and wine Substance Use Substance use: Never Substance use type: does not use Details: alcohol: unknown Vital Signs and Lab Results Vital Signs Most Recent Vital Signs in EMR: Most Recent Vital Signs Temp Pulse Resp BP Pulse Ox 36.5 C 73 16 147/93 H 96 01/13/24 06:15 01/13/24 06:15 01/13/24 06:15 01/13/24 06:15 01/13/24 06:15 Lab Results Blood Type / Crossmatch: No Data to Display Complete Blood Count: No Data to Display Complete Metabolic Panel: No Data to Display Liver Function Panel: No Data to Display Coagulation Panel: No Data to Display Cardiac Panel: No Data to Display Arterial Blood Gas: No Data to Display Venous Blood Gas: No Data to Display Pancreas Panel: No Data to Display Thyroid Panel: No Data to Display Infectious Disease: No Data to Display Blood Cultures: No Data to Display Toxicology Panel: No Data to Display Anesthesia Assessment and Plan Anesthesia History Personal History: No History of Anesthesia Complications Family History: No Family History of Anesthesia Complications Exercise Tolerance Exercise Tolerance: Metabolic Equivalents>4 Pertinent Negatives Pertinent Negatives: No Symptoms of GERD and No Major Cardiovascular Symptoms or Complaints Cardiac & Pulmonary Exam Cardiac Exam: Normal S1/S2 Heart Sounds Pulmonary Exam: Clear Bilateral Breath Sounds Implantable Cardiac Device Does patient have a Pacemaker or an ICD?: No Airway Exam Known Difficult Airway: No Mallampati Class: 2 Mouth Opening: Normal (> 3cm) Thyromental Distance: Greater than 3 cm Neck Range of Motion: Full ROM Neck Circumference: Normal Teeth Condition: Generalized Poor Dentition (4 stable teeth on bottom to hold partial plate, edentulous upper) Airway Comments: Multiple missing, denies loose. ASA Classification ASA Score: ASA 2 Emergency Case?: No NPO Status NPO Status: NPO Clears >2 hours, Solids >8 hours Anesthesia Plan Resuscitation Status: Full Code Anesthesia Technique: General Anesthesia Airway Planned: Endotracheal Tube Pain Management: Surgeon and patient request nerve block Monitors Used: Standard Monitors
[2024-01-13] MEDS: Lactated Ringers 1,000 ML 30 ML IV (07:05)
--- NOTE | 2024-01-13 07:19 | PDOC.DSDIS_ITS ---
Date of service: 01/13/24 Time of Service: 11:00 Discharge Plan Disposition Patient Disposition: Home Condition: Stable Discharge Details Attending Provider: Manfred Peraza Home Meds and New Rx's Prescriptions: Continued Entyvio 300 mg recon soln 300 mg IV Q8W Patient Comments: pt. states he had it in november sometime Rx Instructions: administer over 30 mins alendronate 70 mg tablet 70 mg PO QWEEK gabapentin 300 mg capsule 300 mg PO QHS albuterol sulfate 90 mcg/actuation HFA aerosol inhaler 2 puff inhalation Q6H PRN tramadol 50 mg tablet 50 mg PO Q8H PRN (Reason: pain) Qty: 12 0RF Patient Comments: pt. reports he has to take after surgery aspirin 81 mg tablet,delayed release (DR/EC) 81 mg PO DAILY Qty: 7 0RF Rx Instructions: Take 1 every 24 hrs to prevent a blood clot for 7 days naproxen 250 mg tablet 250 - 500 mg PO BID PRN (Reason: pain, moderate) Qty: 40 0RF Patient Comments: pt. states he has to start taking after surgery Rx Instructions: take with a meal sildenafil 100 mg Tablet 100 mg PO DIRECTED tamsulosin 0.4 mg Capsule 0.4 mg PO HS calcium 100 mg Capsule 100 mg PO DAILY omega-3 fatty acids Capsule 1 cap PO DAILY Discharge Instructions Additional Instructions: Surgery: Right reverse total shoulder arthroplasty (constrained liner) with biceps tenodesis Activity: Do not lift anything heavier than a coffee. You should keep your arm at your side in a neutral position most of the time except for gentle range of motion exercises, physical therapy, and essential activities. You should use the sling whenever you are out of the house. You may have to adjust the abduction pillow or remove it for comfort. At home it is best to remove the sling and rest the arm on a pillow at your side or support the operative side with your other hand. A physical therapy prescription will be sent electronically to start in about 3 weeks. STANDARD protocol. Previously prescribed prescriptions: Aspirin 81 mg take 1 daily to prevent a blood clot for 1 week, starting tomorrow Naproxen 250 mg take 1-2 every 12 hours with a meal as needed for moderate pain Tramadol 50 mg take 1 every 8 hours as needed for severe pain You may use [id number]-[id number] Tylenol (acetaminophen) as needed for mild pain. These pain medications may be taken all at once or in different combinations as needed. Also, recommend Colace (docusate) as a stool softener as surgery and pain medicine cause constipation. You may try kikj-vvx-snacdam diphenhydramine (Benadryl) 25-50 mg nightly as a sleep aid Dressings: Leave dressing in place until follow-up. Keep clean and dry at all times. No showers please. Follow-up: 10-[address] Peraza You may take off the leg compression stockings this evening at home. You may also leave them on a few days longer if you have a history of leg swelling or edema. Please call the office during business hours with any questions or concerns. Let us know right away if you develop any redness, drainage, fevers, chest pain, or trouble breathing. Do not drink alcohol or drive for at least 24 hours after anesthesia. Please call the office during business hours with any questions or concerns. Stand Alone Forms: Anesthesia Discharge Inst., Terrance Pedroza (U) Referrals: Manfred Peraza MD [ [facility] STAFF PHYSICIAN] - 01/26/24 9:30 am Discharge Orders Discharge Orders: Discharge Order (Routine); Ordered 01/13/24 Ordered By: Neena James DS: Diagnosis Discharge Diagnosis (1) Rotator cuff tear arthropathy of right shoulder: Status: Acute
--- NOTE | 2024-01-13 07:28 | W.PM.OP ---
Date of service: 01/13/24 Time of Service: 07:30 Operative Note Operative Note DATE OF PROCEDURE: 01/13/24 PRE-OP DIAGNOSIS: Right: 1. Rotator cuff arthropathy 2. End-stage glenohumeral arthritis 3. Long head of the biceps tendinopathy POST-OP DIAGNOSIS: same PROCEDURE: Right: 1. Reverse total shoulder arthroplasty, CPT # 71062 2. Open biceps tenodesis, CPT # 69924 The assistant golf coach was medically required as this procedure involves retraction, protection of neurovascular structures, and manipulation of multiple instruments and implants at the same time, which cannot be done without a skilled assistant golf coach. SURGEON: Manfred Peraza WHEEL ASSEMBLER: Neena James ANESTHESIA TYPE: Local By Surgeon, General LMA/ETT and Primary Nerve Block Refer to Anesthesia Record ESTIMATED BLOOD LOSS: 75 COMPLICATIONS: None Patient was transported to: PACU Patient's condition: stable Implants: [employer] modular glenoid system baseplate 24 mm +2mm lateralized [employer] modular glenoid system central post 20 mm [employer] modular glenoid system peripheral locking screws 32 mm inferior, 36 mm superior, 16 mm posterior, 20 mm anterior [employer] modular glenoid system glenosphere 42 +4 mm lateralized [employer] humeral stem 135 degrees size 10 [employer] suture cup size 42 posterior offset [employer] humeral insert size 42 +6 mm constrained Indications: Please see complete medical record for details. Findings: Significant long head biceps tenosynovitis, anterior capsular contracture, partial subscapularis tendon tearing, high?grade supraspinatus and partial infraspinatus rotator cuff tearing. Significant glenohumeral cartilage loss with posterior retroversion deformity. Humeral head cartilage loss with marginal osteophytes and varus flattening deformity. Procedure Description: In the operating room, general anesthesia was induced. The patient was positioned beachchair on the operating room table. All bony prominences were well-padded. Preoperative antibiotics were administered. The shoulder was prepped and draped in the usual sterile fashion for shoulder arthroplasty. The correct patient, procedure, and side of the procedure were all verified prior to incision. The deltopectoral approach was preinjected with local anesthetic containing epinephrine and taken to the anterior shoulder. Care was taken to bluntly dissect the interval between the deltoid and pectoralis major muscles and to identify the cephalic vein within its fat stripe. The the vein was somewhat diminutive but still mobilized laterally. Subdeltoid space and conjoined tendon were freed of adhesions. The long head of the biceps tendon was identified just lateral to the lesser tuberosity. The uppermost margin of the pectoralis major tendon was released from the proximal humerus. The long head of the biceps tendon was tenodesed in situ using SutureTape in a [id number] fashion securing it superior margin the pectoralis major tendon. The biceps tendon was amputated and followed proximally to identify the rotator interval. A subscapularis tenotomy was done given the partial tearing and anterior contracture. The supraspinatus was debrided of remnant and infraspinatus of partial thickness tearing. Appropriate coagulation was achieved especially interiorly. Marginal osteophytes were resected to expose the anatomy. The anatomic neck was cut using an oscillating saw with the humeral head bone brought back table in case there was a need for future bone grafting. The proximal humeral protection plate was used to provisionally confirm suture cup and glenosphere size. The proximal humerus was delivered from the wound and maintained in external rotation. Reamers were started appropriately posterior to the bicipital groove taking care to maintain in line approach with the humeral canal. Sequential reaming was done from size 5 up to size 8. Next, the broaches were sequentially used to open the proximal humerus starting with a size 5 and going up to size 10 and sunk to the appropriate depth while maintaining approximately 20-30 degrees retroversion. Although the proximal humeral bone quality was poor, there was good metaphyseal fit and rotational control of the proximal humerus with this larger size. The posterior offset guide was used to ream for the suture cup. Attention was then turned to the glenoid and retractors were placed and a circumferential release performed using the long head of the biceps remnant to remove soft tissue about the glenoid rim. Care was taken inferiorly to work on bone only between 5 and 7:00 o'clock and bluntly elevate tissues inferiorly. The VIP guide was placed on the glenoid and used to confirm placement and trajectory of the central guidepin. The guidepin was inserted and advanced just through the far cortex ensuring adequate central fixation length. Depth gauge was used to confirm length. The glenosphere sizer was used to confirm positioning and glenosphere size. The backside of the baseplate reamer and underside of glenosphere reamers were then used. There was appropriate eccentric reaming inferiorly and anteriorly. The central post drill was done and guidewire removed. The baseplate was impacted and fully compressed onto the glenoid surface. The locking guide was then used to drill and place appropriately lengthed inferior, superior, anterior, and posterior screws. The [id number] reamer was used to confirm adequate peripheral reaming. The glenosphere was applied with the hand inserter operator and then impacted to engage the Garza taper. It was then locked with appropriate countersinking of the setscrew. The glenosphere was inspected and found to have good fit, appropriate positioning, and no soft tissue or bony impingement. Attention was then turned back to the proximal humerus, and the humeral trial cup was connected. Trialing was commenced with +3 mm liner. The shoulder was reduced and taken through range of motion. Trial with +6 mm regular liner had good stability, but slight instability so +9 mm combination of spacer and liner was trialed, but demonstrated far too much tension. . The trial components were removed from the proximal humerus. The wound was copiously irrigated with normal saline. The the proximal humeral stem and suture cup were assembled and brought over the proximal humerus. A small amount of vancomycin powder was distributed in the proximal humerus. The humeral component and suture cup were impacted into place. They sat at the same places last use trials. A final +6 mm constrained liner was chosen given lack of subscapularis and superior rotator cuff to provide adequate stability while not over tensioning conjoined coracoid deltoid and acromion. It was connected and range of motion, stability, and tension confirmed to be appropriate. The shoulder was copiously irrigated with Irrisept and normal saline. Vancomycin powder was distributed deeply about the shoulder and through subcutaneous tissues. The deltopectoral interval was approximated with 2-0 Monocryl burying the vein. Subcutaneous tissue was irrigated then closed using 2-0 Monocryl in a buried interrupted fashion. Skin was closed using 3-0 Monocryl in a buried subcuticular fashion. Skin glue was applied to the incision. A silver impregnated bandage was placed over the incision. The extremity was placed into a shoulder immobilizer. The patient awoke from anesthesia without complication and was taken to the recovery room in stable condition.
[2024-01-13] MEDS: ceFAZolin 2 GM/50 ML BAG IVPB (07:53)
--- NOTE | 2024-01-13 08:03 | W.ANESNERVE ---
Nerve Block Single Injection Procedure Date and Time Date Performed: 01/13/24 Procedure Start: 07:24 Location Where Procedure Performed Procedure Location: Day Surgery Unit Reason Performed: Postoperative Analgesia Requesting Provider: Manfred Peraza Timeout Performed Timeout Performed: Yes Monitoring Used ECG, Blood Pressure, SpO2 and See EMR for corresponding vital signs Sterility Sterility: Hand Hygiene, Surgical Cap, Surgical Mask, Sterile Gloves and Chlorhexidine Sedation Given During Procedure Sedation Given (Indicate Dose Given): Versed IV Dose:: 1mg Patient Mental Status Patient Mental Status: Awake Nerve Block 1st Nerve Block: Laterality: Right Block Type: Supraclavicular Ultrasound Image Saved?: Yes Needle / Catheter Used: 100mm SonoPlex II Local Anesthetic Bolus (Indicate Dose Given): Lidocaine used for local infiltration of skin, Injected in 3-5ml increments after negative blood aspiration, Bupivacaine 0.5% Dose:: 10ml and Exparel Dose:: 10ml Additives (Indicate Dose Given): None Ultrasound: Sterile probe cover and gel used Nerve Stimulator: Supplement to Ultrasound use and No twitch or parasthesia noted < 0.5 mA Paresthesia: None Procedure Tolerated: No Complications and Patient tolerated well Procedure Outcome: Successful Performed By: Oracio Boucher
[2024-01-13] MEDS: Bupivacaine 0.25% Pres-Free 30 ML VIAL (08:21)
[2024-01-13] MEDS: EPINEPHrine 10 MG/10 ML ML (08:21)
[2024-01-13] MEDS: ceFAZolin 1 GM/50 ML BAG IVPB (11:29)
--- NOTE | 2024-01-13 11:30 | DI.RAD_ITS ---
Exam(s) XR SHOULDER RT COMPLETE 2+V EXAM: XR SHOULDER RT COMPLETE 2+V CLINICAL HISTORY: shoulder arthritis. TECHNIQUE: 2D digital imaging was performed of the right shoulder. Two images were obtained. Grash ey and Y views were obtained. COMPARISON: CR XR SHOULDER RT COMPLETE 2+V from 05/20/[address] UPPER EXTREMITY RT WO from 10/06/2023 FINDINGS: The patient is now status post right total reverse shoulder replacement. The orthopedic hardware marvin ears in good position. The bones are intact and normally mineralized. There are degenerative change s seen at the acromioclavicular joint. Postsurgical changes are seen in the soft tissues. IMPRESSION: Status post right total reverse shoulder replacement. DATA REPOSITORY: RADIATION DOSE DELIVERED:
[2024-01-13] MEDS: HYDROmorphone 2 MG/ML SYR IVP (11:39)
[2024-01-13] MEDS: Normal Saline 10 ML VIAL IJ (11:42)
[2024-01-13] MEDS: Ketorolac 15 MG/ML VIAL IVP (12:04)
[2024-01-13] MEDS: ACETAMINOPHEN 1,000 MG/100 ML BTL 400 MG IVPB (12:05)
--- NOTE | 2024-01-13 12:34 | W.ANESPOSTOP ---
Postoperative Evaluation Date, Time and Location Date Performed: 01/13/24 Time Performed: 12:00 Patient Location: PACU Vital Signs Most Recent Imported Vital Signs: Most Recent Vital Signs Temp Pulse Resp BP Pulse Ox 36.3 C L 74 17 117/70 93 01/13/24 12:15 01/13/24 12:15 01/13/24 12:15 01/13/24 12:15 01/13/24 12:15 Pain Score Most Recent Pain Score: Most Recent Pain Score Pain Level 9 01/13/24 12:00 Assessment Mental Status: Awake (Alert & Oriented to Patient Baseline) Airway and Respiratory Function: Patent airway with normal (patient baseline) respiratory exam Cardiovascular Function: Hemodynamically Stable Hydration Status: Adequately Hydrated Nausea & Vomiting: No Nausea or Vomiting Pain: Pain is Moderate or Severe (Shoulder and left arm 0/10) Postoperative Pain Management: Pain being addressed with medication (Has 9/10 right upper chest wall discomfort. Appears very comfortable, treating with meds.) Peripheral Nerve Block: Regional nerve block not resolved at time of post operative discharge
[2024-01-13] MEDS: traMADol 50 MG TAB PO (12:59)
== END 2024-01-13 14:20 | disposition home or self-care (01) ==
PROVIDERS: Visit Provider Student in an Organized Health Care Education/Training Program
PROC: (CPT 23472; principal; 2024-01-13 07:30)
DX: M75.101 Unspecified rotator cuff tear or rupture of right shoulder, not specified as traumatic (principal); M12.811 Other specific arthropathies, not elsewhere classified, right shoulder
CPT/HCPCS: 23472; 23430; 76942; 73030; C9290; J0131; J0665; J0690; J1100; J1170; J1885; J2250; J2371; J2405; J2704; J3370

== ENCOUNTER 2024-01-26 14:51 | Outpatient (CLI) | payer OTHER, SELFPAY ==
--- NOTE | 2024-01-26 09:15 | DI.RAD_ITS ---
Exam(s) XR SHOULDER RT COMPLETE 2+V EXAM: XR SHOULDER RT COMPLETE 2+V CLINICAL HISTORY: F/U RIGHT RTSA. TECHNIQUE: 2D digital imaging was performed. COMPARISON: CR XR SHOULDER RT COMPLETE 2+V from 01/13/2024 FINDINGS: Two views. Stable position alignment of the components of the reverse prosthesis. No fracture or loosening evid ent. IMPRESSION: Stable satisfactory appearance. DATA REPOSITORY: RADIATION DOSE DELIVERED:
== END 2024-01-26 14:52 | disposition home or self-care (01) ==
LOC: DIORS 14:52
PROVIDERS: Visit Provider Student in an Organized Health Care Education/Training Program
DX: Z96.611 Presence of right artificial shoulder joint (principal); Z47.1 Aftercare following joint replacement surgery
CPT/HCPCS: 73030

== ENCOUNTER 2024-02-10 00:56 | Outpatient (RCR) | payer OTHER, SELFPAY ==
[2024-02-10] MEDS: VEDOLIZUMAB 300 MG in Normal Saline 250 ML 500 MG IVPB (08:29)
[2024-02-10] MEDS: Normal Saline Flush 10 ML SYR IVP (08:29)
== END 2024-02-19 23:59 | disposition home or self-care (01) ==
LOC: INF 00:56
PROVIDERS: Visit Provider Nurse Practitioner Acute Care
DX: K51.90 Ulcerative colitis, unspecified, without complications
CPT/HCPCS: 96365; J3380

== ENCOUNTER 2024-04-06 01:35 | Outpatient (RCR) | payer OTHER, SELFPAY ==
[2024-04-06] MEDS: VEDOLIZUMAB 300 MG in Normal Saline 250 ML 500 MG IVPB (08:10)
[2024-04-06] MEDS: Normal Saline Flush 10 ML SYR IVP (08:11)
== END 2024-04-20 23:59 | disposition home or self-care (01) ==
LOC: INF 01:35
PROVIDERS: Visit Provider Nurse Practitioner Acute Care
DX: K51.90 Ulcerative colitis, unspecified, without complications (principal)
CPT/HCPCS: 96365; J3380

== ENCOUNTER 2024-06-01 00:32 | Outpatient (RCR) | payer OTHER, SELFPAY ==
[2024-06-01] MEDS: Normal Saline Flush 10 ML SYR IVP (08:27)
[2024-06-01] MEDS: VEDOLIZUMAB 300 MG in Normal Saline 250 ML 500 MG IVPB (08:27)
== END 2024-06-20 23:59 | disposition home or self-care (01) ==
LOC: INF 00:32
PROVIDERS: Visit Provider Family Medicine
DX: K51.819 Other ulcerative colitis with unspecified complications (principal)
CPT/HCPCS: 96365; J3380

== ENCOUNTER 2024-07-27 01:01 | Outpatient (RCR) | payer OTHER, SELFPAY ==
[2024-07-27] MEDS: Normal Saline Flush 10 ML SYR IVP (08:35)
[2024-07-27] MEDS: VEDOLIZUMAB 300 MG in Normal Saline 250 ML 500 MG IVPB (08:35)
== END 2024-08-20 23:59 | disposition home or self-care (01) ==
LOC: INF 01:01
PROVIDERS: Visit Provider Family Medicine
DX: K51.819 Other ulcerative colitis with unspecified complications (principal)
CPT/HCPCS: 96365; J3380

== ENCOUNTER 2024-09-21 01:34 | Outpatient (RCR) | payer OTHER, SELFPAY ==
[2024-09-21] MEDS: Normal Saline Flush 10 ML SYR IVP (08:25)
[2024-09-21] MEDS: VEDOLIZUMAB 300 MG in Normal Saline 250 ML 500 MG IVPB (08:25)
== END 2024-10-20 23:59 | disposition home or self-care (01) ==
LOC: INF 01:34
PROVIDERS: Visit Provider Family Medicine
DX: K51.819 Other ulcerative colitis with unspecified complications (principal)
CPT/HCPCS: 96365; J3380

== ENCOUNTER 2024-11-16 01:24 | Outpatient (RCR) | payer OTHER, SELFPAY ==
[2024-11-16] MEDS: Normal Saline Flush 10 ML SYR IVP (08:03)
[2024-11-16] MEDS: VEDOLIZUMAB 300 MG in Normal Saline 250 ML 500 MG IVPB (08:22)
== END 2024-11-20 23:59 | disposition home or self-care (01) ==
LOC: INF 01:24
PROVIDERS: Visit Provider Family Medicine
DX: K51.819 Other ulcerative colitis with unspecified complications (principal)
CPT/HCPCS: 96365; J3380

== ENCOUNTER 2025-01-11 00:36 | Outpatient (RCR) | payer OTHER, SELFPAY ==
[2025-01-11] MEDS: VEDOLIZUMAB 300 MG in Normal Saline 250 ML 500 MG IVPB (08:06)
[2025-01-11] MEDS: Normal Saline Flush 10 ML SYR IVP ×2 (08:09→08:43)
== END 2025-01-18 23:59 | disposition home or self-care (01) ==
LOC: INF 00:36
PROVIDERS: Visit Provider Family Medicine
DX: K51.819 Other ulcerative colitis with unspecified complications (principal)
CPT/HCPCS: 96365; J3380

== ENCOUNTER 2025-01-30 15:53 | Outpatient (CLI) | payer OTHER, SELFPAY ==
--- NOTE | 2025-01-30 08:00 | DI.RAD_ITS ---
Exam(s) XR SHOULDER RT COMPLETE 2+V EXAM: XR SHOULDER RT COMPLETE 2+V CLINICAL HISTORY: F/U RIGHT RTSA. TECHNIQUE: 2D digital imaging was performed. Three images were obtained. Grashey, Y and axillary vi ews were obtained. COMPARISON: CR XR SHOULDER RT COMPLETE 2+V from 01/26/2024 FINDINGS: BONES: There are stable post operative changes of a right reverse total shoulder arthroplasty present . No fracture or dislocation. JOINTS: The orthopedic hardware is in good position. No evidence of hardware loosening. SOFT TISSUE: Normal. IMPRESSION: Stable right reverse total shoulder arthroplasty. DATA REPOSITORY: RADIATION DOSE DELIVERED:
== END 2025-01-30 15:54 | disposition home or self-care (01) ==
LOC: DIORS 15:53
PROVIDERS: Visit Provider Student in an Organized Health Care Education/Training Program
DX: M12.811 Other specific arthropathies, not elsewhere classified, right shoulder
CPT/HCPCS: 73030

== ENCOUNTER 2025-02-14 01:08 | Outpatient (CLI) | payer OTHER, SELFPAY ==
--- NOTE | 2025-02-14 | DI.NM_ITS ---
APPROVED REPORT Exam: Exercise Treadmill Patient Location: Out-Patient Room/Bed: Stress Nurse: Herminia Fowler RN Ordering Provider:ELISE PRIYA, Contact Number: [phone] BMI: 25.08 Baseline Rhythm: Sinus Rhythm Indications: Dyspnea on Exertion, Medical History Medical History: MCCLURE, prostate CA Cardiac Medications: Albuterol sulfate, tamsulosin, emtricitabine, gabapentin, alendronate Allergies: NKA Cardiac Risk Factors: Family hx, former smoker Previous Cardiac Procedures: None Pretest Chest Pain Characteristics: None Exercise History: Indeterminate Physical Disabilities: None Lung Sounds: Slightly diminished throughout Heart Sounds: Regular Stress Test Details Test: Exercise stress testing was performed using a Jeronimo protocol. Nuclear Acquisition: Rest Tc-99m/Stress Tc-99m 1 day Rest Isotope: Tc-99m Sestamibi. Dose: 10.0 Date: 02/14/2025 Injection Time: 0900 Stress Isotope: Tc-99m Sestamibi. Dose: 30.0 Date: 02/14/2025 Injection Time: 1037 HR Resting HR Supine: 60 bpm Max Heart Rate (APMHR): 144 bpm Resting HR Standin bpm Target HR (85% APMHR): 122 bpm Max HR Achieved: 145 bpm % of APMHR: 101 Recovery HR: 85 bpm HR response to stress: Normal HR response to stress BP Resting BP Supine: 118/78 mmHg Resting BP Standin/84 mmHg Max BP: 164/92 mmHg Recovery BP: 120/80 mmHg BP response to stress: Normal blood pressure response to stress. ECG Resting ECG: Sinus Rhythm Ectopy: None Stress ECG: Sinus Tachycardia ST Change: No significant ST segment changes noted Arrhythmia: None Recovery ECG: Sinus Rhythm Recovery ST Change: No significant ST segment changes noted Recovery Arrhythmia: Rare PVC's Clinical Reason for Termination: Target HR Achieved Stress Symptoms: Mild SOB Exercise duration: 04 min52 sec Highest Stage Reached: Stage 2: 2.5 mph at 12% grade. Exercise capacity: 6.89 METs Angina Score: None Rate Pressure Product: [id number] Stress ECG Conclusion 1. Resting electrocardiogram was normal 2. Patient exercised on the Jeronimo protocol and completed a workload of 6.89 METS 3. Normal heart rate and blood pressure response to exercise. The patient achieved 100% of predicted heart rate for age 4. There was no electrocardiographic evidence of myocardial ischemia 5. There were no significant dysrhythmias 6. See MPI report Stress Test Summary STAGE Time (mins) Speed (mph) Grade (%) HR BP SpO2 SYMPTOMS METS Supine 60 118/78 96% Standing 66 136/84 1 3 1.7 10 126 150/92 90% 4.5 2 6 2.5 12 145 7 1 min recovery 121 164/92 94% 3 min recovery 92 160/84 95% 6 min recovery 85 120/80 94% MPI Conclusion Myocardial perfusion is normal. There is no ischemia or evidence of prior infarction Ejection fraction is 77% with normal wall motion
== END 2025-02-14 01:28 ==
PROVIDERS: Visit Provider Internal Medicine
DX: R06.09 Other forms of dyspnea (principal)
CPT/HCPCS: 78452; 93017

== ENCOUNTER 2025-03-08 00:43 | Outpatient (RCR) | payer OTHER, SELFPAY ==
[2025-03-08] MEDS: VEDOLIZUMAB 300 MG in Normal Saline 250 ML 500 MG IVPB (08:25)
[2025-03-08] MEDS: Normal Saline Flush 5 ML SYR IVP (08:25)
== END 2025-03-20 23:59 | disposition home or self-care (01) ==
LOC: INF 00:43
PROVIDERS: Visit Provider Family Medicine
DX: K51.819 Other ulcerative colitis with unspecified complications (principal)
CPT/HCPCS: 96365; J3380

== ENCOUNTER 2025-05-09 00:55 | Outpatient (RCR) | payer OTHER, SELFPAY ==
[2025-05-09] MEDS: Normal Saline Flush 10 ML SYR IVP ×2 (07:50→08:10)
[2025-05-09] MEDS: VEDOLIZUMAB 300 MG in Normal Saline 250 ML 500 MG IVPB (08:09)
== END 2025-05-20 23:59 | disposition home or self-care (01) ==
LOC: INF 00:55
PROVIDERS: Visit Provider Family Medicine
DX: K50.819 Crohn's disease of both small and large intestine with unspecified complications (principal)
CPT/HCPCS: 96365; J3380

== ENCOUNTER 2025-06-28 01:00 | Outpatient (CLI) | payer OTHER, SELFPAY ==
[2025-06-28] MEDS: VEDOLIZUMAB 300 MG in Normal Saline 250 ML 500 MG IVPB (08:21)
[2025-06-28] MEDS: Normal Saline Flush 10 ML SYR IVP (08:59)
== END 2025-06-28 01:01 | disposition home or self-care (01) ==
LOC: INF 01:00
PROVIDERS: Visit Provider Family Medicine
DX: K51.00 Ulcerative (chronic) pancolitis without complications (principal)
CPT/HCPCS: 96365; J3380

== ENCOUNTER 2025-08-22 00:17 | Outpatient (CLI) | payer OTHER, SELFPAY ==
[2025-08-22] MEDS: VEDOLIZUMAB 300 MG in Normal Saline 250 ML 500 MG IVPB (08:22)
[2025-08-22] MEDS: Normal Saline Flush 10 ML SYR IVP (08:22)
== END 2025-08-22 00:18 | disposition home or self-care (01) ==
LOC: INF 00:24
PROVIDERS: Visit Provider Family Medicine
DX: K51.00 Ulcerative (chronic) pancolitis without complications (principal)
CPT/HCPCS: 96365; J3380

== ENCOUNTER 2025-10-31 01:28 | Outpatient (CLI) | payer OTHER, SELFPAY ==
[2025-10-31] MEDS: VEDOLIZUMAB 300 MG in Normal Saline 250 ML 500 MG IVPB (08:17)
[2025-10-31] MEDS: Normal Saline Flush 10 ML SYR IVP (08:17)
== END 2025-10-31 01:29 | disposition home or self-care (01) ==
PROVIDERS: Visit Provider Family Medicine
DX: K51.919 Ulcerative colitis, unspecified with unspecified complications (principal)
CPT/HCPCS: 36592; 96365; J3380